=== PATIENT | female | born 1975 | race Two or more races ===

== ENCOUNTER 2024-11-07 02:06 | Inpatient (IN) | payer MEDICAID, OTHER ==
[~2024-11-07] VITALS: Ht 165.1 cm; Wt 77.3 kg
--- NOTE | 2024-11-07 02:19 | ED.PDOC ---
History of Present Illness HPI Comments 49-year-old female presents with a chief complaint of chest pain and shoulder pain x 1 hour. Patient states that her chest pain is localized to her left chest wall, radiates to her left shoulder, describes as pressure, and rates her pain a 9/10. Patient reports that her chest pain began at rest. Patient was hypertensive per EMS at 210 systolic with a heart rate of 130s. Patient was given NTG and ASA by EMS. Chief Complaint: Chest Pain Time Seen by MD: 02:10 Reviewed Notes: Medications, Allergies Allergies: Coded Allergies: NO KNOWN ALLERGIES (Unverified , 11/07/24) Information Source: Patient, Emergency Med Personnel Mode of Arrival: EMS Severity: Moderate Timing: Hours Duration: Since onset Prehospital treatment: NTG Past Medical History Past Medical History (Other): Murmur Surgical History: Denies all surgeries SYS DIR History: Denies all SYS DIR Hx Family History Family History: Reviewed,noncontributory to illness Social History Smoker: Non-Smoker Alcohol: Denies ETOH Use Drugs: Denies Drug Use Lives In: Home Constitutional: denies: chills, diaphoresis, fatigue, fever, malaise, sweats, weakness, others EENTM: denies: blurred vision, double vision, ear bleeding, ear discharge, ear drainage, ear pain, ear ringing, eye pain, eye redness, hearing loss, mouth pain, mouth swelling, nasal discharge, nose bleeding, nose congestion, nose pain, photophobia, tearing, throat pain, throat swelling, voice changes, others Respiratory: denies: cough, hemoptysis, orthopnea, SOB at rest, shortness of breath, SOB with excertion, stridor, wheezing, others Cardiovascular: reports: chest pain; denies: dizzy spells, diaphoresis, Dyspnea on exertion, edema, irregular heart beat, left arm pain, lightheadedness, palpitations, PND, syncope, others Gastrointestinal: denies: abdomen distended, abdominal pain, blood streaked bowels, constipated, diarrhea, dysphagia, difficulty swallowing, hematemesis, melena, nausea, poor appetite, poor fluid intake, rectal bleeding, rectal pain, vomiting, others Genitourinary: denies: abnormal vagina bleeding, burning, dyspareunia, dysuria, flank pain, frequency, hematuria, incontinence, pain, , vagina discharge, urgency, others Neurological: denies: dizziness, fainting, headache, left sided numbness, left sided weakness, numbness, paresthesia, pre-existing deficit, right sided numbness, right sided weakness, seizure, speech problems, tingling, tremors, weakness, others Musculoskeletal: reports: muscle pain (LEFT SHOULDER); denies: back pain, gout, joint pain, joint swelling, muscle stiffness, neck pain, others Integumetry: denies: bruises, change in color, change in hair/nails, dryness, laceration, lesions, lumps, rash, wounds, others Allergic/Immunocompromised: denies: Difficulty Healing, Frequent Infections, Hives, Itching, others Hematologic/Lymphatic: denies: anemia, blood clots, easy bleeding, easy bruising, swollen glands, others Endocrine: denies: excessive hunger, excessive sweating, excessive thirst, excessive urination, flushing, intolerance to cold, intolerance to heat, unexplained weight gain, unexplained weight loss, others Psychiatric: denies: anxiety, bipolar disorder, depression, hopeless, panic disorder, schizophrenia, sleepless, suicidal, others All Other Systems: Reviewed and Negative Physical Exam General Appearance: No Apparent Distress, Normal HEENT: Normal ENT Inspection, Pharynx Normal, TMs Normal Neck: Full Range of Motion, Non-Tender, Normal, Normal Inspection Respiratory: Chest Non-Tender, Lungs Clear, No Accessory Muscle Use, No Respiratory Distress, Normal Breath Sounds Cardiovascular: No Edema, No JVD, No Murmur, No Gallop, Normal Peripheral Pulses, Regular Rate/Rhythm Breast Exam: Deferred Gastrointestinal: No Organomegaly, Non Tender, No Pulsatile Mass, Normal Bowel Sounds, Soft Genitalia: Deferred Pelvic: Deferred Rectal: Deferred Extremities: No calf tenderness, Normal capillary refill, Normal inspection, Normal range of motion, Non-tender, No pedal edema Musculoskeletal : Apperance: Normal Neurologic: Alert, credit collections analyst II-XII nml as Tested, No Motor Deficits, Normal Affect, Normal Mood, No Sensory Deficits Cerebellar Function: Normal Reflexes: Normal Skin: Dry, Normal Color, Warm Lymphatic: No Adenopathy Was a procedure done? Was a procedure done?: No Differential Dx Considerations may include: ACS, costochondritis, electrolyte abnormality X-Ray, Labs, Meds, VS Vital Signs Date Time Temp Pulse Resp B/P (MAP) Pulse Ox O2 Delivery O2 Flow Rate FiO2 11/07/24 04:30 72 18 150/94 (112) 96 11/07/24 04:06 84 16 135/93 11/07/24 03:30 95 16 96 Room Air* 0 21 21 11/07/24 03:02 102 11/07/24 02:58 101 18 169/103 11/07/24 02:49 101 18 169/103 (125) 94 11/07/24 02:09 98.4 129 19 170/101 (124) 96 11/07/24 02:07 123 Lab Test 11/07/24 03:47 11/07/24 02:37 Range/Units Troponin I High Sensitivity 18 11 </=34 ng/L White Blood Count 7.5 4.4-10.8 10^3/uL Red Blood Count 4.66 4.0-5.20 10^6/uL Hemoglobin 13.5 12.2-16.2 g/dL Hematocrit 41.5 36.0-46.0 % Mean Corpuscular Volume 89.1 80.0-100.0 fL Mean Corpuscular Hemoglobin 29.1 28.0-32.0 pg Mean Corpuscular Hemoglobin Concent 32.6 32.0-36.0 g/dL Red Cell Distribution Width 14.3 11.8-14.3 % Platelet Count 219 140-450 10^3/uL Mean Platelet Volume 9.8 6.9-10.8 fL Neutrophils (%) (Auto) 55.3 37.0-80.0 % Lymphocytes (%) (Auto) 37.5 10.0-50.0 % Monocytes (%) (Auto) 5.5 0.0-12.0 % Eosinophils (%) (Auto) 1.4 0.0-7.0 % Basophils (%) (Auto) 0.3 0.0-2.0 % Neutrophils # (Auto) 4.2 1.6-8.6 10 ^3/uL Lymphocytes # (Auto) 2.8 0.4-5.4 10 ^3/uL Monocytes # (Auto) 0.4 0-1.3 10 ^3/uL Eosinophils # (Auto) 0.1 0-0.8 10 ^3/uL Basophils # (Auto) 0 0-0.2 10 ^3/uL Nucleated Red Blood Cells 0.1 % Sodium Level 138 136-145 mmol/L Potassium Level 3.5 3.5-5.1 mmol/L Chloride Level 105 98-107 mmol/L Carbon Dioxide Level 22 20-31 mmol/L Anion Gap 11 5-15 Blood Urea Nitrogen 15 9-23 mg/dL Creatinine 0.94 0.550-1.02 mg/dL Glomerular Filtration Rate Calc 74 >90 mL/min BUN/Creatinine Ratio 16.0 10.0-20.0 Serum Glucose 270 H 74-106 mg/dL Calcium Level 8.5 L 8.7-10.4 mg/dL B-Type Natriuretic Peptide 7.92 0-100 pg/mL Time of 1ST Reevaluation: 02:40 Reevaluation 1ST: Unchanged Patient Education/Counseling: Diagnosis, Treatment, Prognosis Family Education/Counseling: No Family Present Departure 1 Departure Time of Disposition: 06:15 (Patient presented with chest pain that was concerning for possible STEMI, ACS, PE, Pneumonia, Muscle Strain, COPD, Dissection. Data: 1. I ordered and reviewed the result of at least 3 labs including a CBC, BMP, and Troponin. 2. I independently interpreted the following tests: EKG which shows sinus arrhythmia and Chest X-ray which shows benign chest.Risk:This patient has a high risk of morbidity due to further diagnostic testing or treatment and may suffer from an acute cardiac or respiratory disorder. Workup reveals concern for ACS and patient should be admitted for further workup and possible expert consultation. ) Impression: Primary Impression: Acute chest pain Disposition: 09 ADMITTED INPATIENT Admit to: Med Surg Condition: Serious Critical Care Note Critical Care Time?: Yes Critical care comment: Acute chest pain Authorized and Performed by: Aristeo Martínez MD Total critical care time: Approximately 34 minutes Due to a high probability of clinically significant, life threatening deterioration, the patient required my highest level of preparedness to intervene emergently and I personally spent this critical care time directly and personally managing the patient. This critical care time included obtaining a history; examining the patient; pulse oximetry; ordering and review of studies; arranging urgent treatment with development of a management plan; evaluation of patient's response to treatment; frequent reassessment; and, discussions with other providers. This critical care time was performed to assess and manage the high probability of imminent, life-threatening deterioration that could result in multi-organ failure. It was exclusive of separately billable procedures and treating other patients and teaching time. Please see my other sections and the rest of the note for further information on patient assessment and treatment. Stability Stability form required: No I personally scribed for ARISTEO MARTÍNEZ MD ([email or web address]) on 11/07/24 at 02:19. Electronically submitted by Phillip Crawley ([email or web address]). ARISTEO MARTÍNEZ MD Nov 07, 2024 02:19
[2024-11-07] MEDS: MORPHINE SULFATE 4 MG/ML SYR/VIAL IV ONE (02:58)
[2024-11-07] MEDS: ONDANSETRON HCL 4 MG/2 ML VIAL IV ONE (02:58)
[2024-11-07 03:18] LABS: Basophils # (auto) 0 10 ^3/uL (0-0.2); Basophils % (auto) 0.3 % (0.0-2.0); Eosinophils # (auto) 0.1 10 ^3/uL (0-0.8); Eosinophils % (auto) 1.4 % (0.0-7.0); Hematocrit 41.5 % (36.0-46.0); Hemoglobin 13.5 g/dL (12.2-16.2); Lymphocytes # (auto) 2.8 10 ^3/uL (0.4-5.4); Lymphocytes % (auto) 37.5 % (10.0-50.0); Mean Corpuscular Hemoglobin 29.1 pg (28.0-32.0); Mean Corpuscular Hgb Conc. 32.6 g/dL (32.0-36.0); Mean Corpuscular Volume 89.1 fL (80.0-100.0); Monocytes # (auto) 0.4 10 ^3/uL (0-1.3); Monocytes % (auto) 5.5 % (0.0-12.0); Neutrophils # (auto) 4.2 10 ^3/uL (1.6-8.6); Neutrophils % (auto) 55.3 % (37.0-80.0); Nucleated Red Blood Cells % 0.1 %; Platelet Count (auto) 219 10^3/uL (140-450); Red Blood Cells 4.66 10^6/uL (4.0-5.20); Red Cell Distribution Width 14.3 % (11.8-14.3); White Blood Cell 7.5 10^3/uL (4.4-10.8)
[2024-11-07 03:30] VITALS: PULSE 95; RESP 16; O2SAT 96
--- NOTE | 2024-11-07 03:51 | DVH ---
Examination: CXRP CLINICAL INDICATION: Chest pain. COMPARISON: None. TECHNIQUE: Frontal radiograph of the chest was obtained. FINDINGS: Lungs are clear and well expanded with no pulmonary infiltrate or pleural effusion. There is no pneumothorax. The cardiomediastinal silhouette is within normal limits. No acute osseous abnormality is seen. IMPRESSION: No acute cardiopulmonary disease is seen. Electronically Signed 11/07/2024 03:50 Rizwan Murray
[2024-11-07 04:39] LABS: Chloride 105 mmol/L (98-107); Potassium 3.5 mmol/L (3.5-5.1); Sodium 138 mmol/L (136-145)
[2024-11-07 04:40] LABS: Anion Gap 11 (5-15); Carbon Dioxide 22 mmol/L (20-31)
[2024-11-07 04:46] LABS: Blood Urea Nitrogen 15 mg/dL (9-23)
[2024-11-07 04:50] LABS: Calcium 8.5 mg/dL (8.7-10.4); Glucose 270 mg/dL (74-106)
[2024-11-07] MEDS ORDERED: MORPHINE SULFATE INJ 2 MG/ml SYRG IV PRN (05:00)
[2024-11-07] MEDS ORDERED: NITROGLYCERIN 0.4 MG SL TAB SL PRN (05:00)
[2024-11-07] MEDS: ATORVASTATIN 20 MG TAB PO ONE (05:39)
[2024-11-07] MEDS: CLOPIDOGREL BISULFATE 75 MG TAB PO ONE (05:39)
[2024-11-07] MEDS: METOPROLOL SUCCINATE XL 50 MG TAB PO ONE (05:40)
[2024-11-07] MEDS: ASPirin 325 MG TAB PO ONE (05:46)
--- NOTE | 2024-11-07 06:18 | DVHHPRES ---
History of Present Illness Resident Creating Document: LAURAJOSE MIGUEL RESIDENT History of Present Illness Patient is a 49-year-old female with no diagnosed past medical history was brought to the ED by EMS after she had experienced chest pain few hours prior to admission. Patient reported sudden onset of left sided pressure-like chest pain radiated down, 9/10 on intensity, onset at rest, associated with sweating, palpitations, shortness of breath mild nausea. Patient was given 4 baby aspirins at home which did not relieve the pain and was given nitroglycerin sublingual by EMS after which she reported minimal improvement in pain. Patient reported similar episode of chest pain about 2 weeks ago when she was in [place]. Patient reports using 3-4 pillows while she sleeps, orthopnea and PND. She reports intermittent swelling of bilateral lower extremities. On arrival to the ED 12 lead ECG was done which showed sinus tachycardia, no evidence acute ST segment, T-wave abnormalities. Troponin levels were trended and were normal limits. Past medical history: Not diagnosed patient reports having high blood pressure and reported heart murmur Past surgical history: None Family history: Nonsignificant Social history: Patient lives family and denies smoking, alcohol, drug use Patient reports no home medications Review of Systems Review of Systems Patient seen and examined at the bedside Reports chest pain left upper pressure-like 3/10 on intensity, nonradiating, has mild left costochondral reproducible tenderness Denied nausea, vomiting, shortness of breath, palpitations Patient on telemetry and has intermittent tachycardia with a heart rate going up to 100-110 beats per minute. Allergies: Coded Allergies: NO KNOWN ALLERGIES (Unverified , 11/07/24) Medications Current Medications Medications Dose Ordered Sig/Dov Route Start Time Stop Time Status Last Admin Dose Admin Morphine Sulfate 2 mg Q30M PRN IV 11/07/24 05:00 Nitroglycerin 0.4 mg Q5MINP PRN SL 11/07/24 05:00 Atorvastatin Calcium 40 mg HS PO 11/07/24 22:00 Metoprolol Succinate 25 mg DAILY PO 11/07/24 13:00 Aspirin 81 mg DAILY PO 11/08/24 10:00 Exam Vital Signs Vital Signs Date Time Temp Pulse Resp B/P (MAP) Pulse Ox O2 Delivery O2 Flow Rate FiO2 11/07/24 05:40 77 140/85 11/07/24 04:30 18 96 11/07/24 03:30 Room Air* 0 21 21 11/07/24 02:09 98.4 Exam Physical Examination Constitutional: Patient alert and oriented to time, place and person and appears anxious and in mild distress because chest pain. Gen - no pallor, no icterus, no cyanosis, no clubbing, no LAD, no edema . Skin - Patients skin is warm and dry. HEENT - normocephalic, atraumatic, dry mucous membranes. Neck - full ROM, no LAD, no JVD. Pulmonary - B/L vesicular breath sounds. no crackles , no wheezing, no stridor. cardiovascular - normal S1,S2 heard. no murmurs heard. peripheral pulses radial 2+, pedal 2+. capillary refill normal <2 secs. GI - soft abdomen without tenderness to palpation . no hepatospleenomegaly. Bowel sounds normoactive Neurological - Patient is A/O X 3 . Bilateral upper extremity strength 5/5, bilateral lower extremity strength 5/5, no facial droop, normal speech, no tremor, no sensory deficiets. Labs/Xrays Labs Test 11/07/24 03:47 11/07/24 02:37 Range/Units Troponin I High Sensitivity 18 </=34 ng/L White Blood Count 7.5 4.4-10.8 10^3/uL Red Blood Count 4.66 4.0-5.20 10^6/uL Hemoglobin 13.5 12.2-16.2 g/dL Hematocrit 41.5 36.0-46.0 % Mean Corpuscular Volume 89.1 80.0-100.0 fL Mean Corpuscular Hemoglobin 29.1 28.0-32.0 pg Mean Corpuscular Hemoglobin Concent 32.6 32.0-36.0 g/dL Red Cell Distribution Width 14.3 11.8-14.3 % Platelet Count 219 140-450 10^3/uL Mean Platelet Volume 9.8 6.9-10.8 fL Neutrophils (%) (Auto) 55.3 37.0-80.0 % Lymphocytes (%) (Auto) 37.5 10.0-50.0 % Monocytes (%) (Auto) 5.5 0.0-12.0 % Eosinophils (%) (Auto) 1.4 0.0-7.0 % Basophils (%) (Auto) 0.3 0.0-2.0 % Neutrophils # (Auto) 4.2 1.6-8.6 10 ^3/uL Lymphocytes # (Auto) 2.8 0.4-5.4 10 ^3/uL Monocytes # (Auto) 0.4 0-1.3 10 ^3/uL Eosinophils # (Auto) 0.1 0-0.8 10 ^3/uL Basophils # (Auto) 0 0-0.2 10 ^3/uL Nucleated Red Blood Cells 0.1 % Sodium Level 138 136-145 mmol/L Potassium Level 3.5 3.5-5.1 mmol/L Chloride Level 105 98-107 mmol/L Carbon Dioxide Level 22 20-31 mmol/L Anion Gap 11 5-15 Blood Urea Nitrogen 15 9-23 mg/dL Creatinine 0.94 0.550-1.02 mg/dL Glomerular Filtration Rate Calc 74 >90 mL/min BUN/Creatinine Ratio 16.0 10.0-20.0 Serum Glucose 270 H 74-106 mg/dL Calcium Level 8.5 L 8.7-10.4 mg/dL Assessment/Plan Assessment/Plan Assessment # Acute chest pain,typical ?Unstable angina # ?Costochondritis # hypertensive heart disease # suspected heart failure systolic versus diastolic Plan - took aspirin 4 tablets at home - given aspirin 81 mg and Plavix 75mg - atorvastatin 40 mg - metoprolol succinate 25 mg once daily - ECG showed sinus tachycardia without acute ST segment or T-wave abnormalities - troponin levels under normal limits - echo pending - urinalysis and urine drug screen pending - TSH pending - BNP pending - COVID and influenza pending - nitroglycerin p.r.n. for chest pain - cardiology consulted awaiting for recommendation Goals of care discussed with the patient and her niece for over 20 minutes. Full Code Plan discussed with Dr. Brooks Plan discussed with: Patient, Other (niece) My Orders Orders - JOSE MIGUEL SANCHEZ RESIDENT Procedure Category Date Status Time Admit ADMIT 11/07/24 Transmitted 04:50 Morphine Sulfate PHA 11/07/24 In Process Injection 05:00 Notify Of Changes HERMILA 11/07/24 In Process From Base 04:50 Mixing Plant Operator For HERMILA 11/07/24 In Process 24 Hours 04:50 Emergency Dysrhythmia HERMILA 11/07/24 In Process Protocol 04:50 Nitroglycerin PHA 11/07/24 In Process Sublingual (Ntrostat 05:00 Atorvastatin (Lipitor) PHA 11/07/24 In Process 22:00 Metoprolol Xl PHA 11/07/24 In Process Succinate (Toprol Xl) 13:00 Aspirin Tablet PHA 11/08/24 In Process 10:00 Urinalysis LAB 11/07/24 Logged 04:50 Drug Screen LAB 11/07/24 Logged 04:50 Covid19 Antigen [facility] 11/07/24 Logged Rapid Influenza A&B LAB 11/07/24 Logged 04:50 Comprehensive LAB 11/07/24 Logged Metabolic Panel 04:50 Thyroid Stimulating LAB 11/07/24 Logged Hormone 04:50 * Cardiology Consult CONS 11/07/24 Transmitted 04:59 Code Status CODE 11/07/24 Transmitted 05:14 Date of Service: Nov 07, 2024 Billing Provider: MONICA BROOKS MD Common Visit Codes: [id number] INP/OBS CARE (HIGH) JOSE MIGUEL SANCHEZ RESIDENT Nov 07, 2024 06:18 MONICA BROOKS MD Nov 07, 2024 11:21
[2024-11-07 08:00] VITALS: PULSE 55; RESP 17; O2SAT 98
[2024-11-07 09:20] LABS: COVID19 ANTIGEN SOFIA FIA NEGATIVE (NEGATIVE); Rapid Influenza A Negative (Negative); Rapid Influenza B Negative (Negative)
[2024-11-07 09:30] LABS: Alanine Aminotransferase 25 U/L (7-40); Albumin 4.2 g/dL (3.2-4.8); Anion Gap 8 (5-15); Aspartate Aminotransferase 23 U/L (13-40); BUN/Creatinine Ratio 16.2 (10.0-20.0); Bilirubin, Total 0.4 mg/dL (0.2-1.0); Blood Urea Nitrogen 12 mg/dL (9-23); Calcium 9.8 mg/dL (8.7-10.4); Carbon Dioxide 26 mmol/L (20-31); Chloride 106 mmol/L (98-107); Potassium 3.9 mmol/L (3.5-5.1); Sodium 140 mmol/L (136-145); Total Protein 6.7 g/dL (5.7-8.2)
[2024-11-07 09:35] LABS: Alkaline Phosphatase 120 U/L (46-116); Glucose 127 mg/dL (74-106)
--- NOTE | 2024-11-07 10:34 | DVHINCON2 ---
Date Seen: Nov 07, 2024 Referring Physician MD Katie Reason for Consultation Typical chest pain ?Unstable angina History of Present Illness This is a pleasant [place]ic-speaking mostly female who presented to the emergency room with a chief complaint of chest pain x 1 hr prior to arrival. The patient who is visiting from [place] for the holidays states she developed chest pain described as pressure-like, radiating to her left shoulder area, non provoked, and associated with a systolic blood pressure of 219 mmHg HR 130s bpm for which she took ASA 81 mg x 2. She then called EMS given continuation of symptoms. At that time, she was administered ASA x2 and NTG SL 0.4 mg x 2 with no relief of symptoms. She was also found with a blood sugar level of 304 ng/dL. Multiple 12 lead electrocardiogram revealed an initial sinus tachycardia rhythm without discernible ST segment ischemia and a subsequent normal sinus rhythm in the 70s bpm. Serial troponin levels are negative. At time of assessment she denies any further cardiac symptoms and was found with a SBP in the 160s mmHg. Significant medical history includes thyroid disease, history of a cardiac murmur, and history of takotsubo cardiomyopathy at 17 y.o. for which she underwent a transthoracic echocardiogram with no further cardiac follow-up afterwards. Past Medical History Past medical history reviewed. No other significant than mentioned above. Past Surgical History Past surgical history reviewed. No other significant than mentioned above. Family History Family history reviewed. Social History Denies the use of illicit drugs, alcohol, or tobacco use. Allergies: Coded Allergies: NO KNOWN ALLERGIES (Unverified , 11/07/24) Home Meds Home medications reviewed. Current Medications Current Medications Medications (Trade) Dose Ordered Sig/Dov Route PRN Reason Start Time Stop Time Status Last Admin Morphine Sulfate 2 mg Q30M PRN IV FOR CHEST PAIN 11/07/24 05:00 11/07/24 07:42 DC Nitroglycerin (Ntrostat Sublingual) 0.4 mg Q5MINP PRN SL FOR CHEST PAIN 11/07/24 05:00 11/07/24 07:42 DC Atorvastatin Calcium (Lipitor) 40 mg HS PO 11/07/24 22:00 Metoprolol Succinate (Toprol Xl) 25 mg DAILY PO 11/07/24 13:00 Aspirin 81 mg DAILY PO 11/08/24 10:00 Review of Systems Constitutional: No symptom reported Ears, Nose, & Throat: No symptom reported Eyes: No symptom reported Neurological: No symptoms reported Pulmonary/Respiratory: No symptom reported Cardiovascular: Chest pain Gastrointestinal: No symptom reported Genitourinary: No symptom reported Musculoskeletal: No symptom reported Skin: No symptom reported Psychiatric: No symptom reported Endocrine: No symptom reported Hemotologic/Lymphatic: No symptom reported Vital Signs Vital Signs Date Time Temp Pulse Resp B/P (MAP) Pulse Ox O2 Delivery O2 Flow Rate FiO2 11/07/24 08:00 98.3 59 19 161/94 (116) 98 98.3 11/07/24 03:30 Room Air* 0 21 21 Physical Exam General Appearance: Cooperative. Well developed. Obese. In no acute distress Head Exam: Normal inspection Neck Exam: Normal inspection. Non-tender. Normal alignment Pulmonary/Respiratory: Chest non-tender. Clear bilateral breath sounds Cardiovascular/Chest: Regular rate and rhythm. S1, S2. NSR. No murmurs. No JVD. Peripheral Pulses: 2+ Radial (R). 2+ Radial (L). 2+ Pedal (R). 2+ Pedal (L) Abdominal Exam: Normal bowel sounds. Soft. Nontender. No hepatospenomegaly. No masses Ankle Exam: Negative ankle edema Lower extremities: Negative lower extremity edema Neuro/Mental Status: A&O x4. Coherent Thoughts/Psych: Normal thought pattern. Appropriate mood and affect. Good judgement and insight Appearance: In no acute distress Skin Exam: Normal inspection. Normal color. Warm. Dry Labs/Diagnostic Data Labs Test 11/07/24 08:55 11/07/24 08:50 11/07/24 02:37 Range/Units Sodium Level 140 136-145 mmol/L Potassium Level 3.9 3.5-5.1 mmol/L Chloride Level 106 98-107 mmol/L Carbon Dioxide Level 26 20-31 mmol/L Anion Gap 8 5-15 Blood Urea Nitrogen 12 9-23 mg/dL Creatinine 0.74 0.550-1.02 mg/dL Glomerular Filtration Rate Calc 99 >90 mL/min BUN/Creatinine Ratio 16.2 10.0-20.0 Serum Glucose 127 H 74-106 mg/dL Calcium Level 9.8 8.7-10.4 mg/dL Total Bilirubin 0.4 0.2-1.0 mg/dL Aspartate Amino Transferase (AST) 23 13-40 U/L Alanine Aminotransferase (ALT) 25 7-40 U/L Alkaline Phosphatase 120 H 46-116 U/L Troponin I High Sensitivity 14 </=34 ng/L Total Protein 6.7 5.7-8.2 g/dL Albumin 4.2 3.2-4.8 g/dL Thyroid Stimulating Hormone (TSH) 1.89 0.55-4.78 uIU/mL Influenza Type A Antigen Negative Negative Influenza Type B Antigen Negative Negative SARS-CoV-2 Antigen (Rapid) Negative NEGATIVE White Blood Count 7.5 4.4-10.8 10^3/uL Red Blood Count 4.66 4.0-5.20 10^6/uL Hemoglobin 13.5 12.2-16.2 g/dL Hematocrit 41.5 36.0-46.0 % Mean Corpuscular Volume 89.1 80.0-100.0 fL Mean Corpuscular Hemoglobin 29.1 28.0-32.0 pg Mean Corpuscular Hemoglobin Concent 32.6 32.0-36.0 g/dL Red Cell Distribution Width 14.3 11.8-14.3 % Platelet Count 219 140-450 10^3/uL Mean Platelet Volume 9.8 6.9-10.8 fL Neutrophils (%) (Auto) 55.3 37.0-80.0 % Lymphocytes (%) (Auto) 37.5 10.0-50.0 % Monocytes (%) (Auto) 5.5 0.0-12.0 % Eosinophils (%) (Auto) 1.4 0.0-7.0 % Basophils (%) (Auto) 0.3 0.0-2.0 % Neutrophils # (Auto) 4.2 1.6-8.6 10 ^3/uL Lymphocytes # (Auto) 2.8 0.4-5.4 10 ^3/uL Monocytes # (Auto) 0.4 0-1.3 10 ^3/uL Eosinophils # (Auto) 0.1 0-0.8 10 ^3/uL Basophils # (Auto) 0 0-0.2 10 ^3/uL Nucleated Red Blood Cells 0.1 % B-Type Natriuretic Peptide 7.92 0-100 pg/mL Assessment Chest pain in the setting of hypertensive emergency Rule out structural heart disease 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 Hx of unspecified cardiac murmur Thyroid disease Obesity Plan/Recommendation We will continue the following plan/recommendations (Dr. Chopra): * Echocardiogram to evaluate cardiac function * Outpatient stress test if deemed necessary * Aggressive blood pressure control for target SBP <140 mmHg * Currently on BB. Add Chlorthalidone. Up-titrate as necessary * Lipid panel and HgbA1C pending * Initiate DVT/VTE prophylaxis Thank you for allowing us to participate in this patient's care. Please call if you have any questions or concerns. This medical document was created using an electronic medical record system with voice recognition software and computerized dictation system. Although this document has been carefully reviewed, there might still be some phonetic and typographical errors. Occasional wrong-word or ``sound-alike substitutions may have occurred due to the inherent limitations of voice recognition software. These areas are purely typographical due to imperfections of the software programs and do not reflect any compromise in the patient's medical care. Please read the chart carefully and recognize, using context, where these substitutions have occurred. Plan discussed with: Patient, Daughter, Other Date of Service: Nov 07, 2024 Billing Provider: LOGAN CHOPRA MD Cardiology Common Codes: [id number] INP/OBS CARE (High) MARINE MAGANA [facility] Nov 07, 2024 10:34
[2024-11-07] MEDS: CHLORTHALIDONE 25 MG TAB PO ONE (10:45)
[2024-11-07] MEDS: ENOXAPARIN SOD 40 MG/0.4 ML SYRINGE SC ONE (10:45)
[2024-11-07] MEDS ORDERED: hydrALAZINE HCL 20 MG/ML VL IV PRN (11:00)
[2024-11-07 11:19] LABS: Cholesterol 219 mg/dL (< 200); HDL Cholesterol 35 mg/dL (40-59); LDL Cholesterol 141 mg/dL (< 100); Triglycerides 263 mg/dL (< 150)
[2024-11-07] MEDS: METOPROLOL SUCCINATE XL 50 MG TAB PO SCH (13:00)
[2024-11-07 13:30] VITALS: BP 124/76; PULSE 57; RESP 16; TEMP 98.1; O2SAT 95
[2024-11-07 17:00] VITALS: BP 138/79; PULSE 64; RESP 16; TEMP 98.1; O2SAT 94
[2024-11-07 20:00] VITALS: PULSE 68
[2024-11-07 21:00] VITALS: BP 103/67; PULSE 63; RESP 17; TEMP 99.1; O2SAT 99
[2024-11-07] MEDS: ATORVASTATIN 20 MG TAB PO SCH (21:05)
--- NOTE | 2024-11-07 21:08 | DVHPNRES ---
Progress Note Date Seen: Nov 07, 2024 Resident Creating Document: ESTRELLA LONGO RESIDENT Medical Necessity Reason Pt with a Central, PICC or Fol: No Subjective Review of Systems pt seen and examined at bedside, mentioning of improvement in her symptoms Objective vital signs Vital Sign Date Time Temp Pulse Resp B/P (MAP) Pulse Ox O2 Delivery O2 Flow Rate FiO2 11/07/24 17:00 98.1 64 16 138/79 (98) 94 98.1 11/07/24 13:30 Room Air* 0 21 medications Current Medications Medications Dose Ordered Sig/Dov Route Start Time Stop Time Status Last Admin Dose Admin Atorvastatin Calcium 40 mg HS PO 11/07/24 22:00 11/07/24 21:05 40 MG Metoprolol Succinate 25 mg DAILY PO 11/07/24 13:00 Aspirin 81 mg DAILY PO 11/08/24 10:00 Enoxaparin Sodium 40 mg DAILY SC 11/08/24 10:00 Chlorthalidone 25 mg DAILY@BREAKFAST PO 11/08/24 08:00 Hydralazine HCl 10 mg Q6HP PRN IV 11/07/24 11:00 Examination Examination General Appearance: Alert, Oriented X3, Cooperative, No acute distress HEENT: EOMI Respiratory: Clear to auscultation, Normal air movement Cardiovascular: Regular rate, Normal S1, Normal S2 Abdominal: Normal bowel sounds Extremities: No cyanosis, No edema, Normal pulses, No tenderness/swelling Skin: No rashes, No breakdown Neuro: Normal speech and tone laboratory and microbiology Laboratory Tests 11/07/24 08:55 11/07/24 02:37 Test 11/07/24 08:55 Range/Units Serum Glucose 127 H 74-106 mg/dL Labs and/or images reviewed: Labs reviewed by me, Image(s) reviewed by me Problem List/Assessment/Plan Problem List/Assessment/Plan Assessment/plan #Chest pain in the setting of hypertensive emergency -EKG Troponins Echocardiogram Cardiology consulted Started on chlorthalidone and metoprolol by the vaccine customer representative Continue aspirin and atorvastatin #Thyroid disease, patient does not remember it is hypo or hyper thyroidism -order TSH in the a.m. Code status discussed with the patient for greater than 21 minutes, full code Case discussion with dr Vladislav Koch discussed with: Patient, Other My Orders My Orders Orders - ESTRELLA LONGO Procedure Category Date Status Time Urinalysis LAB 11/07/24 Logged 07:42 Test, Urine LAB 11/07/24 Logged 07:42 Date of Service: Nov 07, 2024 Billing Provider: MAX CARDENAS MD Common Visit Codes: [id number] INP/OBS CARE(HIGH) DONTAESTRELLA RESIDENT Nov 07, 2024 21:08 MAX CARDENAS MD Nov 08, 2024 08:42
[2024-11-08 01:00] VITALS: BP 111/78; PULSE 66; RESP 18; TEMP 98; O2SAT 96
[2024-11-08 05:00] VITALS: BP 104/68; PULSE 59; RESP 17; TEMP 98; O2SAT 98
[2024-11-08 08:00] VITALS: PULSE 55
[2024-11-08 09:00] VITALS: BP 111/64; PULSE 66; RESP 18; TEMP 98.1; O2SAT 96
[2024-11-08] MEDS ORDERED: DEXTROSE (50%) 50ML SYRG IV PRN (09:30)
[2024-11-08] MEDS: ASPirin 81 mg TAB PO SCH (10:27)
[2024-11-08] MEDS: CHLORTHALIDONE 25 MG TAB PO SCH (10:27)
[2024-11-08] MEDS: ENOXAPARIN SOD 40 MG/0.4 ML SYRINGE SC SCH (10:28)
[2024-11-08] MEDS: ACCU-CHEK COMFORT CURVE STRIP VI SCH (11:42)
[2024-11-08] MEDS: InsuLIN REG 1unit/0.01ml Soln (100units/ml) SC SCH (12:01)
--- NOTE | 2024-11-08 12:45 | ECG ---
[facility] Test Date: 2024-11-07 Test Time: 02:07:44 Pat Name: GERI JACOBS Department: er Room: 0214T A Gender: F Contact Center Team Lead: shabana : 1975 Requested By: ARISTEO HARRIS Order Number: [id number] Reading MD: Hugo Goldman Measurements Intervals [place] Rate: 123 P: 58 LA: 149 QRS: 1 QRSD: 96 T: 3 QT: 322 QTc: 461 Interpretive Statements Sinus tachycardia Probable left atrial enlargement Borderline T abnormalities, inferior leads Electronically Signed On 11-08-2024 14:17:51 PST by Hugo Goldman Please click the below link to view image of tracing.
--- NOTE | 2024-11-08 12:46 | ECG ---
[facility] Test Date: 2024-11-07 Test Time: 05:05:05 Pat Name: GERI JACOBS Department: er Room: 0214T A Gender: F Passenger Barge Master: shabana : 1975 Requested By: ARISTEO HARRIS Order Number: [id number] Reading MD: Hugo Goldman Measurements Intervals [place] Rate: 75 P: 37 OR: 157 QRS: 16 QRSD: 99 T: 41 QT: 383 QTc: 428 Interpretive Statements Sinus rhythm Electronically Signed On 11-08-2024 14:18:16 PST by Hugo Goldman Please click the below link to view image of tracing.
--- NOTE | 2024-11-08 12:46 | ECG ---
[facility] Test Date: 2024-11-07 Test Time: 03:02:18 Pat Name: GERI JACOBS Department: er Room: 0214T A Gender: F Sewage Plant Operator: shabana : 1975 Requested By: ARISTEO HARRIS Order Number: [id number] Reading MD: Hugo Goldman Measurements Intervals [place] Rate: 102 P: 47 WI: 159 QRS: 22 QRSD: 93 T: 32 QT: 352 QTc: 459 Interpretive Statements Sinus tachycardia Probable left atrial enlargement Electronically Signed On 11-08-2024 14:17:55 PST by Hugo Goldman Please click the below link to view image of tracing.
[2024-11-08 13:05] VITALS: BP 167/95; PULSE 71; RESP 18; TEMP 98.9; O2SAT 95
--- NOTE | 2024-11-08 13:21 | DVHPN2 ---
Consult Progress Note Date Seen: Nov 08, 2024 Subjective Review of Systems: CVS:Normal, RESPIRATORY:Normal, NEURO:Normal Other Systems: Denies any further cardiac symptoms Objective vital signs Vital Sign Date Time Temp Pulse Resp B/P (MAP) Pulse Ox O2 Delivery O2 Flow Rate FiO2 11/08/24 13:05 98.9 71 18 167/95 (119) 95 98.9 11/08/24 08:43 Room Air* 0 21 Total Intake and Output 11/07/24 11/07/24 11/08/24 15:00 23:00 07:00 Intake Total 240 ml 300 ml 350 ml Balance 240 ml 300 ml 350 ml medications Current Medications Medications Dose Ordered Sig/Dov Route Start Time Stop Time Status Last Admin Dose Admin Atorvastatin Calcium 40 mg HS PO 11/07/24 22:00 11/07/24 21:05 40 MG Metoprolol Succinate 25 mg DAILY PO 11/07/24 13:00 Aspirin 81 mg DAILY PO 11/08/24 10:00 11/08/24 10:27 81 MG Enoxaparin Sodium 40 mg DAILY SC 11/08/24 10:00 11/08/24 10:28 40 MG Chlorthalidone 25 mg DAILY@BREAKFAST PO 11/08/24 08:00 11/08/24 10:27 25 MG Hydralazine HCl 10 mg Q6HP PRN IV 11/07/24 11:00 Diagnostic Test (Pha) 1 strip ACHS 11/08/24 11:30 11/08/24 11:42 1 STRIP Insulin Human Regular ACHS SC 11/08/24 11:30 11/08/24 12:01 2 UNITS Dextrose 50 ml UD PRN IV 11/08/24 09:30 Examination: LUNGS:Normal, CVS:Normal, NEURO:Normal laboratory and microbiology Laboratory Tests 11/07/24 08:55 11/07/24 02:37 Test 11/07/24 08:55 Range/Units Serum Glucose 127 H 74-106 mg/dL Problem List/Assessment/Plan Problem List/Assessment/Plan Chest pain in the setting of hypertensive emergency 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 Hx of unspecified cardiac murmur Dyslipidemia, newly diagnosed Diabetes mellitus, newly diagnosed, HgbA1C 8.1% Thyroid disease Obesity Plan/Recommendation (Dr. Chopra) * Echocardiogram revealed EF 55% * Outpatient stress test if deemed necessary * Aggressive blood pressure control for target SBP <140 mmHg * Continue on BB & Chlorthalidone. Up-titrate as necessary * Tight glycemic control and lipid-lowering agent There is no further cardiac work-up indicated at this time. Thank you for allowing us to participate in this patient's care. Please call if you have any questions or concerns. This medical document was created using an electronic medical record system with voice recognition software and computerized dictation system. Although this document has been carefully reviewed, there might still be some phonetic and typographical errors. Occasional wrong-word or ``sound-alike substitutions may have occurred due to the inherent limitations of voice recognition software. These areas are purely typographical due to imperfections of the software programs and do not reflect any compromise in the patient's medical care. Please read the chart carefully and recognize, using context, where these substitutions have occurred. Plan discussed with: Patient, Other Date of Service: Nov 08, 2024 Billing Provider: LOGAN CHOPRA MD Cardiology Common Codes: [id number] [facility] Nov 08, 2024 13:21
[2024-11-08] MEDS ORDERED: METO-6 PO (13:58)
[2024-11-08] MEDS ORDERED: CHLO25TA2 PO (13:58)
[2024-11-08] MEDS ORDERED: METF-370 PO (13:59)
[2024-11-08] MEDS ORDERED: LOSA-534 PO (14:01)
--- NOTE | 2024-11-08 14:54 | DVHDSRES ---
Discharge Summary Date of Admission Resident Creating Document: ESTRELLA LONGO Nov 07, 2024 at 04:50 Date of Discharge: Nov 08, 2024 Labs/Diagnostic Data: Laboratory Results Test 11/08/24 11:24 11/07/24 08:55 11/07/24 08:50 11/07/24 02:37 POC Glucose 142 mg/dl (70-106) Sodium Level 140 mmol/L (136-145) Potassium Level 3.9 mmol/L (3.5-5.1) Chloride Level 106 mmol/L (98-107) Carbon Dioxide Level 26 mmol/L (20-31) Anion Gap 8 (5-15) Blood Urea Nitrogen 12 mg/dL (9-23) Creatinine 0.74 mg/dL (0.550-1.02) Glomerular Filtration Rate Calc 99 mL/min (>90) BUN/Creatinine Ratio 16.2 (10.0-20.0) Serum Glucose 127 mg/dL (74-106) Hemoglobin A1c 8.1 % A1C (<5.7) Calcium Level 9.8 mg/dL (8.7-10.4) Total Bilirubin 0.4 mg/dL (0.2-1.0) Aspartate Amino Transferase (AST) 23 U/L (13-40) Alanine Aminotransferase (ALT) 25 U/L (7-40) Alkaline Phosphatase 120 U/L (46-116) Troponin I High Sensitivity 14 ng/L (</=34) Total Protein 6.7 g/dL (5.7-8.2) Albumin 4.2 g/dL (3.2-4.8) Triglycerides Level 263 mg/dL (< 150) Cholesterol Level 219 mg/dL (< 200) LDL Cholesterol 141 mg/dL (< 100) HDL Cholesterol 35 mg/dL (40-59) Thyroid Stimulating Hormone (TSH) 1.89 uIU/mL (0.55-4.78) Influenza Type A Antigen Negative (Negative) Influenza Type B Antigen Negative (Negative) SARS-CoV-2 Antigen (Rapid) Negative (NEGATIVE) White Blood Count 7.5 10^3/uL (4.4-10.8) Red Blood Count 4.66 10^6/uL (4.0-5.20) Hemoglobin 13.5 g/dL (12.2-16.2) Hematocrit 41.5 % (36.0-46.0) Mean Corpuscular Volume 89.1 fL (80.0-100.0) Mean Corpuscular Hemoglobin 29.1 pg (28.0-32.0) Mean Corpuscular Hemoglobin Concent 32.6 g/dL (32.0-36.0) Red Cell Distribution Width 14.3 % (11.8-14.3) Platelet Count 219 10^3/uL (140-450) Mean Platelet Volume 9.8 fL (6.9-10.8) Neutrophils (%) (Auto) 55.3 % (37.0-80.0) Lymphocytes (%) (Auto) 37.5 % (10.0-50.0) Monocytes (%) (Auto) 5.5 % (0.0-12.0) Eosinophils (%) (Auto) 1.4 % (0.0-7.0) Basophils (%) (Auto) 0.3 % (0.0-2.0) Neutrophils # (Auto) 4.2 10 ^3/uL (1.6-8.6) Lymphocytes # (Auto) 2.8 10 ^3/uL (0.4-5.4) Monocytes # (Auto) 0.4 10 ^3/uL (0-1.3) Eosinophils # (Auto) 0.1 10 ^3/uL (0-0.8) Basophils # (Auto) 0 10 ^3/uL (0-0.2) Nucleated Red Blood Cells 0.1 % B-Type Natriuretic Peptide 7.92 pg/mL (0-100) Other Laboratory Tests 11/07/24 08:55 11/07/24 02:37 Brief Hx & Hospital Course: 49 year old female with past medical history of ?Thyroid disease presented with sudden onset of left sided pressure-like chest pain radiated down, 9/10 on intensity, onset at rest, associated with sweating, palpitations, shortness of breath mild nausea. Patient was given 4 baby aspirins at home which did not relieve the pain and was given nitroglycerin sublingual by EMS after which she reported minimal improvement in pain. Patient reported similar episode of chest pain about 2 weeks ago when she was in [place]. Patient mentioned that her blood pressure has been high. EKG and troponin were ordered, which were unremarkable for acute coronary syndrome. Echo was ordered. Cardiology was consulted. Patient was started on metoprolol and hydrochlorothiazide by the casino change attendant, patient blood pressure got improved. Patient's hemoglobin resulted as 8.1. At the time of discharge, patient had no chest pain and vitals were stable. Discharge plan was discussed with the patient and patient was advised to follow up with PCP/DC clinic within one week and casino change attendant within 1-2 weeks. Patient was prescribed hydrochlorothiazide, metformin and losartan. Condition at Discharge: Stable Final Diagnosis/Problems List chest pain due to Hypertensive crisis, ruled out ACS, possible stable angina new onset DM2 Discharge Disposition: Home Discharge Instruct/Medications Diet: Regular Activity: No Restrictions, As Tolerated Activity comment: a Follow Up/Referral: f/u with PCP/DC clinic within 1 week f/u with cardiology within 1-2 weeks Medications: script sent to pharmacy Discharge Statement: "Patient was advised to return to the ER or call 911 if any headaches, dizziness, shortness of breath, chest pain, abdominal pain, bleeding, fevers, or worsening of medical condition. Patient was counseled about treatment plan, medications, possible side effects, patientverbalized understanding. All questions were answered to the best of my ability. This discharge took greater then 30 minutes in planning, reviewing documentation, counseling the patient, and discussing with other team members." ASSESSMENT ASSESSMENT Assessment chest pain due to Hypertensive crisis Date of Service: Nov 08, 2024 Billing Provider: MAX CARDENAS MD Common Visit Codes: [id number] DISCH DAY >30min ESTRELLA LONGO Nov 08, 2024 14:54 MAX CARDENAS MD Nov 09, 2024 09:02
[2024-11-08 15:22] VITALS: BP 151/88; PULSE 71; RESP 18; TEMP 98.9; O2SAT 95
--- NOTE | 2024-11-08 17:19 | DVHSR ---
APPROVED REPORT EXAM: Two-dimensional and M-mode echocardiogram with Doppler and color Doppler. Blood Pressure: 140/85 mmHg INDICATION orthopnoea DIMENSIONS LVDd4.1 (3.8-5.7cm)LA (2D)4.1 (1.9-4.0cm)Aortic Root3.3 (2.0-3.7cm) LVDs2.6 (2.5-4.0cm)LA (MM) (1.9-4.0cm)Aortic Cusp Exc1.9 (1.5-2.0cm) EF (%) 66.7 (55-70%)Rt. Atrium3.4 (1.9-4.0cm)Asc. Aorta cm IVSd1.3 (0.7-1.1cm)RV (D)3.4 (1.8-2.4cm) PWd1.2 (0.7-1.1cm) Mitral Valve MitralMitral Stenosis E wave0.90m/sMV Mean GR.mmHg A wave0.83m/sMV Peak GR.mmHg E/A ratio1.12D MVAcm2 DECEL [id number] 1/2 Timems Aortic Valve Aortic ValveAortic Stenosis V10.95m/Stevan Mean GR.6mmHg V21.73m/Stevan Peak GR.12mmHg Pulmonic Valve V20.73m/s Tricuspid Valve TR Velocity2.31m/s [id number] Conclusion Normal left ventricular size and dimension. Normal left ventricular systolic function estimated ejec tion fraction 55%. There is a grade 1 diastolic dysfunction. Normal right ventricular size and dimension. Normal right ventricular systolic function. Slightly i ncreased right ventricular systolic [id number] mm of mercury Normal biatrial size and dimension. Normal aortic valve structure and function. Normal mitral valve structure and function. Normal tricuspid valve structure and function. The pulmonary valve is grossly normal. No pericardial effusion.
== END 2024-11-08 16:00 | disposition home or self-care (01) | DRG 199 ==
LOC: ER 02:06 → EDBD 02:06 → TELE 04:50 → TELE-CENTR 12:56
PROVIDERS: ADMIT Student in an Organized Health Care Education/Training Program; ATTEND Emergency Medicine
DX: I16.9 Hypertensive crisis, unspecified (principal); E07.9 Disorder of thyroid, unspecified; I20.89 Other forms of angina pectoris; E11.9 Type 2 diabetes mellitus without complications; E66.9 Obesity, unspecified; E78.5 Hyperlipidemia, unspecified; Z20.822 Contact with and (suspected) exposure to COVID-19; Z68.28 Body mass index [BMI] 28.0-28.9, adult
CPT/HCPCS: 36415; 71045; 80048; 80053; 80061; 82962; 83036; 83880; 84443; 84484; 85025; 87426; 87804; 93005; 93306; 96374; 96375; 99291; G0378; J1815; J2405